=== PATIENT | male | born 1945 | race Caucasian/White ===

== ENCOUNTER 2017-09-11 21:28 | Emergency (ER) | payer MEDICARE ==
[2017-09-11 21:29] VITALS: BP 166/93; PULSE 80; RESP 16; TEMP 97.9; O2SAT 97
[2017-09-11] MEDS ORDERED: TETANUS/DIPHTHERIA TOXOID ADULT 0.5 ML VIAL IM ONE (22:30)
[2017-09-11] MEDS ORDERED: NEXI40CA PO (23:04)
--- NOTE | 2017-09-11 23:06 | PD ---
HPI Chief Complaint: Laceration/Skin Injury Time Seen by Provider: 22:23 Travel History International Travel<30 days: No Contact w/Intl Traveler<30days: No Traveled to known affect area: No History of Present Illness HPI 71-year-old [id number] white male presents to emergency department with a laceration to the tip of his left index finger which he sustained using a knife to cut open a container sponges. Patient states that he is visiting for the 24 hours [place]. He states that he has not had a tetanus shot over 5 years. Some moderate. He denies any numbness or tingling. Pain is mild. No exacerbating activity. No alleviating factor. PFSH Past Medical History Narrative Medical GERD Hx Anticoagulant Therapy: No Tetanus Vaccination: > 5 Years Past Surgical History Surgical History: Unable to Obtain Social History Alcohol Use: Yes Tobacco Use: No Allergies-Medications (Allergen,Severity, Reaction): Coded Allergies: No Known Allergies (Unverified , 09/11/17) Review of Systems General / Constitutional: No: Fever Eyes: No: Visual changes HENT: No: Headaches Cardiovascular: No: Chest Pain or Discomfort Respiratory: No: Shortness of Breath Gastrointestinal: No: Abdominal Pain Genitourinary: No: Dysuria Musculoskeletal: No: Pain Skin: No Rash Neurologic: No: Weakness Psychiatric: No: Depression Endocrine: No: Polydipsia Hematologic/Lymphatic: No: Easy Bruising Physical Exam Narrative GENERAL: This is a well-nourished, well-developed patient, in no apparent distress. SKIN: No rashes, ecchymoses or lesions. Warm and dry. HEAD: Atraumatic. Normocephalic. EYES: PERRL, EOMI, no discharge or injection. No scleral icterus. EARS: Clear NOSE: Nasal turbinates appear normal. THROAT: Mucosa pink and moist. Airway patent. NECK: Trachea midline. supple, moves head freely. LUNGS: Clear to auscultation. CV: Regular in rhythm. ABDOMEN: Soft nontender. EXT: No clubbing cyanosis or edema. Patient has a 1.5 center laceration to the tip of the left index finger. Positive bleeding. Neurovascular intact pre-no foreign body or bony injury. No tendon or joint injury. Data Data Last Documented VS Vital Signs Date Time Temp Pulse Resp B/P (MAP) Pulse Ox O2 Delivery O2 Flow Rate FiO2 09/11/17 21:29 97.9 80 16 166/93 117 97 Room Air Orders Orders Tetanus/Diphtheria Tox Adult (Tetanus/Di (09/11/17 22:30) MDM Medical Decision Making Medical Screen Exam Complete: Yes Emergency Medical Condition: Yes Medical Record Reviewed: Yes Differential Diagnosis MDM: High Differential diagnoses: Fracture, sprain, strain, dislocation, contusion, neurovascular injury Narrative Course Patient's tetanus status updated. Patient laceration close sutures. Procedures Procedure Narrative LACERATION LOCATION: Left index finger LENGTH: 1.5 cm NUMBER OF STITCHES/MIGUEL: 3 REPAIR: The area of the laceration was prepped with Betadine and sterilely draped. The laceration was infiltrated with 1% lidocaine digital block. The wound was copiously irrigated and explored without evidence of foreign body, tendon injury or neurovascular injury. The wound was closed using 5-0 proline. This was a simple single layer repair. A sterile dressing was applied. The patient was advised to keep the dressing clean and dry. Patient tolerated the procedure well. Diagnosis Primary Impression: left index finger laceration Patient Instructions: General Instructions Additional Instructions: Rest. Elevation. Keep clean and dry. Daily wound care with soap, water, Neosporin. Tylenol and Advil for pain. Sutures out in 14 days. Return to the ER for any problems. Med/Other Pt SpecificInfo: Wound Care Disposition: 01 DISCHARGE HOME Condition: Stable [place] Sep 11, 2017 23:06
== END 2017-09-11 23:27 | disposition home or self-care (01) ==
LOC: NEPD 21:28
DX: S61.211A Laceration without foreign body of left index finger without damage to nail, initial encounter (principal); K21.9 Gastro-esophageal reflux disease without esophagitis; W26.0XXA Contact with knife, initial encounter; Z23 Encounter for immunization
CPT/HCPCS: 12001; 90471; 90714